=== PATIENT | female | born 1985 | race Caucasian/White ===

== ENCOUNTER 2017-07-16 07:56 | Emergency (ER) | payer BC ==
[2017-07-16] MEDS ORDERED: Sodium Chloride 0.9% 10 ML Syringe FLUSH PRN (08:32)
--- NOTE | 2017-07-16 08:33 | EDM.PDOC ---
<Yeni Randall - Last Filed: 07/16/17 08:35> ED HPI GENERAL MEDICAL PROBLEM - General Chief Complaint: Diabetic Complaint Stated Complaint: DKA Time Seen by Provider: 07/16/17 08:30 Source of Information: Reports: Patient, Family History Limitations: Reports: No Limitations - History of Present Illness INITIAL COMMENTS - FREE TEXT/NARRATIVE: Patient is a 31 YO female who presents today with hyperglycemia. She states this morning around 0600 her blood glucose was 130. She then went to work and started to feel nauseas, rechecked her blood sugar and it was 320. She reports sudden onset of burning substernal chest pain. She sates it feels like "heart burn". She reports nausea, weakness and generally not feeling well. She denies vomiting, diarrhea, headaches, or vision changes and states she felt well up until this morning. She has not eaten anything yet today. She was diagnosed with Type I diabetes when she was in the 7th grade. She is currently on an insulin pump but states it is about out and needs to be changed. She has had a lot of stress recently with family health problems. She reports having a glass of wine Friday night but otherwise no alcohol intake. - Related Data Allergies Allergy/AdvReac Type Severity Reaction Status Date / Time No Known Allergies Allergy Verified 07/16/17 08:13 Home Meds: Home Meds Amphetamine/Dextroamphetamine [Adderall XR] 15 mg PO DAILY 07/16/17 [History] Aspirin 81 mg PO DAILY 07/16/17 [History] Glucagon,Human Recombinant [Glucagen] 1 mg SUBCUT ASDIRECTED PRN 07/16/17 [ History] Insulin Aspart [NovoLOG] 90 units SUBCUT DAILY 07/16/17 [History] Losartan [Cozaar] 25 mg PO DAILY 07/16/17 [History] Rosuvastatin [Crestor] 5 mg PO DAILY 07/16/17 [History] Subcutaneous Insulin Pump [Minimed 670G] 1 device SUBCUT DAILY 07/16/17 [History ] ED ROS GENERAL - Review of Systems Review Of Systems: See Below Constitutional: Reports: Weakness, Fatigue. Denies: Fever, Chills, Diaphoresis HEENT: Reports: No Symptoms. Denies: Vision Change Respiratory: Reports: No Symptoms Cardiovascular: Reports: No Symptoms Endocrine: Reports: Fatigue, High Glucose GI/Abdominal: Reports: Nausea. Denies: Abdominal Pain, Vomiting Skin: Reports: No Symptoms Neurological: Reports: No Symptoms Psychiatric: Reports: No Symptoms ED EXAM GENERAL NO PERIP PULSE - Physical Exam Exam: See Below Exam Limited By: No Limitations General Appearance: Alert, WD/WN, No Apparent Distress Eye Exam: Bilateral Eye: EOMI, PERRL Throat/Mouth: Normal Inspection, Normal Lips, Normal Teeth Head: Atraumatic, Normocephalic Respiratory/Chest: No Respiratory Distress, Lungs Clear, Normal Breath Sounds, No Accessory Muscle Use, Chest Non-Tender Cardiovascular: Normal Peripheral Pulses, Regular Rate, Rhythm, No Murmur GI/Abdominal: Normal Bowel Sounds, Soft, Non-Tender, No Distention Neurological: Alert, Oriented, CN II-XII Intact, Normal Cognition, Normal Gait Psychiatric: Normal Affect, Normal Mood Skin Exam: Warm, Dry, Intact, Normal Color Course - Vital Signs Last Recorded V/S: Last Vital Signs Temp 98.1 F 07/16/17 08:09 Pulse 120 H 07/16/17 08:09 Resp 16 07/16/17 08:09 BP 134/68 07/16/17 08:09 Pulse Ox 100 07/16/17 08:09 - Orders/Labs/Meds Orders: Active Orders 24 hr Category Date Time Status POC Glucose [Blood Glucose Check, Bedside] [RC] ONETIME Care 07/16/17 08:31 Active Peripheral IV Care [RC] . DIRECTED Care 07/16/17 08:32 Active Peripheral IV Insertion Adult [OM.PC] Stat Oth 07/16/17 08:31 Ordered Labs: Laboratory Tests 07/16/17 07/16/17 07/16/17 Range/Units 08:36 08:36 09:56 WBC 7.38 (3.98-10.04) K/mm3 RBC 4.48 (3.98-5.22) M/mm3 Hgb 13.3 (11.2-15.7) gm/L Hct 38.0 (34.1-44.9) % MCV 84.8 (79.4-94.8) fl MCH 29.7 (25.6-32.2) pg MCHC 35.0 (32.2-35.5) g/dl RDW Std Deviation 36.0 L (36.4-46.3) fL Plt Count 198 (182-369) K/mm3 MPV 11.5 (9.4-12.3) fl Neut % (Auto) 72.6 H (34.0-71.1) % Lymph % (Auto) 19.5 (19.3-51.7) % [place] % (Auto) 6.2 (4.7-12.5) % Eos % (Auto) 0.4 L (0.7-5.8) Baso % (Auto) 0.9 (0.1-1.2) % Neut # (Auto) 5.35 (1.56-6.13) K/mm3 Lymph # (Auto) 1.44 (1.18-3.74) K/mm3 [place] # (Auto) 0.46 H (0.24-0.36) K/mm3 Eos # (Auto) 0.03 L (0.04-0.36) K/mm3 Baso # (Auto) 0.07 (0.01-0.08) K/mm3 Sodium 138 (136-145) mEq/L Potassium 4.3 (3.5-5.1) mEq/L Chloride 101 (98-107) mEq/L Carbon Dioxide 16 L (21-32) mEq/L Anion Gap 25.3 H (5-15) BUN 23 H (7-18) mg/dL Creatinine 1.0 (0.55-1.02) mg/dL Est Cr Clr Drug Dosing 86.75 mL/min Estimated GFR (MDRD) > 60 (>60) mL/min BUN/Creatinine Ratio 23.0 H (14-18) Glucose 464 H (74-106) mg/dL POC Glucose 341 H (70-105) mg/dL Calcium 9.3 (8.5-10.1) mg/dL Total Bilirubin 0.9 (0.2-1.0) mg/dL AST 22 (15-37) U/L ALT 35 (14-59) U/L Alkaline Phosphatase 71 (46-116) U/L Total Protein 7.1 (6.4-8.2) g/dl Albumin 4.4 (3.4-5.0) g/dl Globulin 2.7 gm/dL Albumin/Globulin Ratio 1.6 (1-2) /18 Range/Units 11:36 WBC (3.98-10.04) K/mm3 RBC (3.98-5.22) M/mm3 Hgb (11.2-15.7) gm/L Hct (34.1-44.9) % MCV (79.4-94.8) fl MCH (25.6-32.2) pg MCHC (32.2-35.5) g/dl RDW Std Deviation (36.4-46.3) fL Plt Count (182-369) K/mm3 MPV (9.4-12.3) fl Neut % (Auto) (34.0-71.1) % Lymph % (Auto) (19.3-51.7) % [place] % (Auto) (4.7-12.5) % Eos % (Auto) (0.7-5.8) Baso % (Auto) (0.1-1.2) % Neut # (Auto) (1.56-6.13) K/mm3 Lymph # (Auto) (1.18-3.74) K/mm3 [place] # (Auto) (0.24-0.36) K/mm3 Eos # (Auto) (0.04-0.36) K/mm3 Baso # (Auto) (0.01-0.08) K/mm3 Sodium (136-145) mEq/L Potassium (3.5-5.1) mEq/L Chloride (98-107) mEq/L Carbon Dioxide (21-32) mEq/L Anion Gap (5-15) BUN (7-18) mg/dL Creatinine (0.55-1.02) mg/dL Est Cr Clr Drug Dosing mL/min Estimated GFR (MDRD) (>60) mL/min BUN/Creatinine Ratio (14-18) Glucose (74-106) mg/dL POC Glucose 273 H (70-105) mg/dL Calcium (8.5-10.1) mg/dL Total Bilirubin (0.2-1.0) mg/dL AST (15-37) U/L ALT (14-59) U/L Alkaline Phosphatase (46-116) U/L Total Protein (6.4-8.2) g/dl Albumin (3.4-5.0) g/dl Globulin gm/dL Albumin/Globulin Ratio (1-2) Meds: Medications Discontinued Medications Generic Name Dose Route Start Last Admin Trade Name Ryan PRN Reason Stop Dose Admin Sodium Chloride 1,000 mls @ 999 mls/hr 07/16/17 08:45 07/16/17 08:42 Normal Saline IV 999 mls/hr ONETIME LILIA Administration Sodium Chloride 1,000 mls @ 999 mls/hr 07/16/17 09:58 07/16/17 10:08 Normal Saline IV 07/16/17 10:58 999 mls/hr ONETIME ONE Administration Insulin Human Regular 4 unit 07/16/17 08:42 07/16/17 08:51 Humulin R IVPUSH 07/16/17 08:43 4 units ONETIME ONE Administration Protocol Sodium Chloride 10 ml 07/16/17 08:32 07/16/17 08:51 Saline Flush FLUSH 10 ml ASDIRECTED PRN Administration Keep Vein Open Departure - Departure Disposition: Home, Self-Care 01 Clinical Impression: Hyperglycemia, Dehydration, severe - Discharge Information Instructions: Type 1 Diabetes Mellitus, Diagnosis, Adult Referrals: Ayden Avila MD [Primary Care Provider] - Forms: ED Department Discharge, ED Return to Work/School Form Additional Instructions: Continue to drink plenty of water to maintain hydration, continue to moniter blood sugar readings carefully, using your insulin pump as appropriate to help get sure sugar back down to normal. Follow-up clinic as needed, return to ED as needed if symptoms worsening in any way - My Orders Last 24 Hours: My Active Orders 07/16/17 08:31 POC Glucose [Blood Glucose Check, Bedside] [RC] ONETIME Peripheral IV Insertion Adult [OM.PC] Stat 07/16/17 08:32 Peripheral IV Care [RC] . DIRECTED - Assessment/Plan Last 24 Hours: My Active Orders 07/16/17 08:31 POC Glucose [Blood Glucose Check, Bedside] [RC] ONETIME Peripheral IV Insertion Adult [OM.PC] Stat 07/16/17 08:32 Peripheral IV Care [RC] . DIRECTED <Edward Ferreira - Last Filed: 07/16/17 14:54> ED HPI GENERAL MEDICAL PROBLEM Chest Pain Score (Numeric/FACES): 8 Course - Orders/Labs/Meds Orders: Active Orders 24 hr Category Date Time Status POC Glucose [Blood Glucose Check, Bedside] [RC] ONETIME Care 07/16/17 08:31 Active Peripheral IV Care [RC] . DIRECTED Care 07/16/17 08:32 Active Peripheral IV Insertion Adult [OM.PC] Stat Oth 07/16/17 08:31 Ordered Labs: Laboratory Tests 07/16/17 07/16/17 07/16/17 Range/Units 08:36 08:36 09:56 WBC 7.38 (3.98-10.04) K/mm3 RBC 4.48 (3.98-5.22) M/mm3 Hgb 13.3 (11.2-15.7) gm/L Hct 38.0 (34.1-44.9) % MCV 84.8 (79.4-94.8) fl MCH 29.7 (25.6-32.2) pg MCHC 35.0 (32.2-35.5) g/dl RDW Std Deviation 36.0 L (36.4-46.3) fL Plt Count 198 (182-369) K/mm3 MPV 11.5 (9.4-12.3) fl Neut % (Auto) 72.6 H (34.0-71.1) % Lymph % (Auto) 19.5 (19.3-51.7) % [place] % (Auto) 6.2 (4.7-12.5) % Eos % (Auto) 0.4 L (0.7-5.8) Baso % (Auto) 0.9 (0.1-1.2) % Neut # (Auto) 5.35 (1.56-6.13) K/mm3 Lymph # (Auto) 1.44 (1.18-3.74) K/mm3 [place] # (Auto) 0.46 H (0.24-0.36) K/mm3 Eos # (Auto) 0.03 L (0.04-0.36) K/mm3 Baso # (Auto) 0.07 (0.01-0.08) K/mm3 Sodium 138 (136-145) mEq/L Potassium 4.3 (3.5-5.1) mEq/L Chloride 101 (98-107) mEq/L Carbon Dioxide 16 L (21-32) mEq/L Anion Gap 25.3 H (5-15) BUN 23 H (7-18) mg/dL Creatinine 1.0 (0.55-1.02) mg/dL Est Cr Clr Drug Dosing 86.75 mL/min Estimated GFR (MDRD) > 60 (>60) mL/min BUN/Creatinine Ratio 23.0 H (14-18) Glucose 464 H (74-106) mg/dL POC Glucose 341 H (70-105) mg/dL Calcium 9.3 (8.5-10.1) mg/dL Total Bilirubin 0.9 (0.2-1.0) mg/dL AST 22 (15-37) U/L ALT 35 (14-59) U/L Alkaline Phosphatase 71 (46-116) U/L Total Protein 7.1 (6.4-8.2) g/dl Albumin 4.4 (3.4-5.0) g/dl Globulin 2.7 gm/dL Albumin/Globulin Ratio 1.6 (1-2) /07/30 Range/Units 11:36 WBC (3.98-10.04) K/mm3 RBC (3.98-5.22) M/mm3 Hgb (11.2-15.7) gm/L Hct (34.1-44.9) % MCV (79.4-94.8) fl MCH (25.6-32.2) pg MCHC (32.2-35.5) g/dl RDW Std Deviation (36.4-46.3) fL Plt Count (182-369) K/mm3 MPV (9.4-12.3) fl Neut % (Auto) (34.0-71.1) % Lymph % (Auto) (19.3-51.7) % [place] % (Auto) (4.7-12.5) % Eos % (Auto) (0.7-5.8) Baso % (Auto) (0.1-1.2) % Neut # (Auto) (1.56-6.13) K/mm3 Lymph # (Auto) (1.18-3.74) K/mm3 [place] # (Auto) (0.24-0.36) K/mm3 Eos # (Auto) (0.04-0.36) K/mm3 Baso # (Auto) (0.01-0.08) K/mm3 Sodium (136-145) mEq/L Potassium (3.5-5.1) mEq/L Chloride (98-107) mEq/L Carbon Dioxide (21-32) mEq/L Anion Gap (5-15) BUN (7-18) mg/dL Creatinine (0.55-1.02) mg/dL Est Cr Clr Drug Dosing mL/min Estimated GFR (MDRD) (>60) mL/min BUN/Creatinine Ratio (14-18) Glucose (74-106) mg/dL POC Glucose 273 H (70-105) mg/dL Calcium (8.5-10.1) mg/dL Total Bilirubin (0.2-1.0) mg/dL AST (15-37) U/L ALT (14-59) U/L Alkaline Phosphatase (46-116) U/L Total Protein (6.4-8.2) g/dl Albumin (3.4-5.0) g/dl Globulin gm/dL Albumin/Globulin Ratio (1-2) Meds: Medications Discontinued Medications Generic Name Dose Route Start Last Admin Trade Name Freq PRN Reason Stop Dose Admin Sodium Chloride 1,000 mls @ 999 mls/hr 07/16/17 08:45 07/16/17 08:42 Normal Saline IV 999 mls/hr ONETIME LILIA Administration Sodium Chloride 1,000 mls @ 999 mls/hr 07/16/17 09:58 07/16/17 10:08 Normal Saline IV 07/16/17 10:58 999 mls/hr ONETIME ONE Administration Insulin Human Regular 4 unit 07/16/17 08:42 07/16/17 08:51 Humulin R IVPUSH 07/16/17 08:43 4 units ONETIME ONE Administration Protocol Sodium Chloride 10 ml 07/16/17 08:32 07/16/17 08:51 Saline Flush FLUSH 10 ml ASDIRECTED PRN Administration Keep Vein Open - Re-Assessments/Exams Free Text/Narrative Re-Assessment/Exam: 07/16/17 14:51. Initial blood sugar was 464, bicarbonate was low, anion gap high showing moderately severe dehydration. She was initially treated with 4 units regular insulin IV along with initial 1 L bolus normal saline. Blood sugar checked after 1 hour was down to 341. By now patient did have her insulin pump loaded and working again in accordance with elevated blood sugar in that range. She was given a second liter of normal saline IV and repeat blood sugar came down to 271. Point she had voided, feeling tremendously better, wanting to go home believing that she could continue to oral hydrate, keep working with her insulin pump to get her glucose down to baseline level. Discharge instructions as documented. Departure - Departure Time of Disposition: 12:24 Condition: Fair - My Orders Last 24 Hours: My Active Orders 07/16/17 08:31 POC Glucose [Blood Glucose Check, Bedside] [] ONETIME Peripheral IV Insertion Adult [OM.PC] Stat 07/16/17 08:32 Peripheral IV Care [RC] . DIRECTED - Assessment/Plan Last 24 Hours: My Active Orders 07/16/17 08:31 POC Glucose [Blood Glucose Check, Bedside] [] ONETIME Peripheral IV Insertion Adult [OM.PC] Stat 07/16/17 08:32 Peripheral IV Care [RC] . DIRECTED
[2017-07-16] MEDS ORDERED: Insulin Regular, Human 100 Units/ML 3 ML Vial IVPUSH ONE (08:42)
[2017-07-16] MEDS ORDERED: Sodium Chloride 0.9% 1,000 ML IV SCH (08:45)
[2017-07-16] MEDS ORDERED: Sodium Chloride 0.9% 1,000 ML IV ONE (09:58)
== END 2017-07-16 12:47 | disposition home or self-care (01) ==
LOC: JD.ED 07:56
DX: E10.65 Type 1 diabetes mellitus with hyperglycemia (principal); E86.0 Dehydration; Z79.82 Long term (current) use of aspirin; Z79.899 Other long term (current) drug therapy
CPT/HCPCS: 36415; 80053; 82962; 85025; 96361; 96374; 99285; J1815; J7040; J7050; 99284